=== PATIENT | female | born 1995 | race Two or more races ===

== ENCOUNTER → 2019-02-02 | Outpatient (REF) | payer BC | LOC: M LAB REF 12:40 | PROVIDERS: ATTEND Nurse Practitioner Family | DX: Z32.02 Encounter for pregnancy test, result negative (principal); N92.0 Excessive and frequent menstruation with regular cycle ==

== ENCOUNTER → 2022-10-05 | Outpatient (CLI) | payer BC ==
[2022-10-05 17:39] LABS: HEMATOCRIT 41.5 % (36.0-47.0); HEMOGLOBIN 13.5 g/dl (12.0-15.5); MEAN CORPUSCULAR HEMOGLOBIN 28.9 pg (27.0-33.0); MEAN CORPUSCULAR HGB CONC 32.5 g/dl (32.0-36.5); MEAN CORPUSCULAR VOLUME 88.9 fl (80.0-96.0); PLATELET COUNT, AUTOMATED 286 10^3/uL (150-450); RED BLOOD COUNT 4.67 10^6/uL (4.00-5.40); WHITE BLOOD COUNT 6.6 10^3/uL (4.0-10.0)
[2022-10-05 18:08] LABS: URIC ACID 3.4 MG/DL (3.1-7.8)
[2022-10-05 18:10] LABS: LDH LACTATE DEHYDROGENASE 162 U/L (120-246)
[2022-10-05 18:11] LABS: ALT/SGPT 17 U/L (7.0-40); AST/SGOT 10 U/L (<34); BILIRUBIN,TOTAL 0.6 MG/DL (0.3-1.2); CREATININE FOR GFR 0.57 MG/DL (0.55-1.30); GLOMERULAR FILTRATION RATE > 60.0 (>60)
[2022-10-05 18:13] LABS: CREATININE,RANDOM URINE 146.9 MG/DL
[2022-10-05 18:16] LABS: TOTAL PROTEIN,RANDOM URINE < 6.0 MG/DL (0.0-14.0)
[2022-10-05 18:45] LABS: HIV 1&2 SCREEN CENTAUR NEGATIVE (NEGATIVE)
[2022-10-05 18:51] LABS: HEPATITIS C VIRUS ABY INDEX 0.1 INDEX (<0.8)
[2022-10-05 19:33] LABS: GC DNA AMPLIFICATION NEGATIVE (NEGATIVE)
== END ==
LOC: M PLALAB 15:36
PROVIDERS: ATTEND Advanced Practice Midwife
DX: Z34.01 Encounter for supervision of normal first pregnancy, first trimester (principal)

== ENCOUNTER → 2022-11-26 | Outpatient (CLI) | payer BC | LOC: M PLALAB 15:00 | PROVIDERS: ATTEND Obstetrics & Gynecology | DX: Z34.92 Encounter for supervision of normal pregnancy, unspecified, second trimester (principal) ==

== ENCOUNTER → 2022-12-21 | Outpatient (CLI) | payer BC | LOC: M WHC 07:45 | PROVIDERS: ATTEND Obstetrics & Gynecology | DX: Z34.92 Encounter for supervision of normal pregnancy, unspecified, second trimester (principal) ==

== ENCOUNTER → 2023-01-18 | Outpatient (CLI) | payer BC | LOC: M WHC 13:57 | PROVIDERS: ATTEND Obstetrics & Gynecology | DX: Z36.2 Encounter for other antenatal screening follow-up (principal) ==

== ENCOUNTER → 2023-02-08 | Outpatient (CLI) | payer BC | LOC: M WHC 10:30 | PROVIDERS: ATTEND Advanced Practice Midwife | DX: O16.2 Unspecified maternal hypertension, second trimester (principal); O32.2XX0 Maternal care for transverse and oblique lie, not applicable or unspecified; Z3A.26 26 weeks gestation of pregnancy ==

== ENCOUNTER → 2023-02-08 | Outpatient (CLI) | payer BC ==
[2023-02-08 14:05] LABS: HEMATOCRIT 36.1 % (36.0-47.0); MEAN CORPUSCULAR HEMOGLOBIN 30.8 pg (27.0-33.0); MEAN CORPUSCULAR HGB CONC 33.2 g/dl (32.0-36.5); MEAN CORPUSCULAR VOLUME 92.8 fl (80.0-96.0); PLATELET COUNT, AUTOMATED 214 10^3/uL (150-450); RED BLOOD COUNT 3.89 10^6/uL (4.00-5.40); WHITE BLOOD COUNT 7.5 10^3/uL (4.0-10.0)
== END ==
LOC: M PLALAB 11:03
PROVIDERS: ATTEND Advanced Practice Midwife
DX: O16.2 Unspecified maternal hypertension, second trimester (principal)

== ENCOUNTER → 2023-04-04 | Outpatient (CLI) | payer BC | LOC: M WHC 14:07 | PROVIDERS: ATTEND Advanced Practice Midwife | DX: O16.3 Unspecified maternal hypertension, third trimester (principal) ==

== ENCOUNTER → 2023-04-18 | Outpatient (REF) | payer BC | LOC: M PLALAB 09:01 | PROVIDERS: ATTEND Advanced Practice Midwife | DX: O10.013 Pre-existing essential hypertension complicating pregnancy, third trimester (principal) ==

== ENCOUNTER → 2023-04-22 | Outpatient (CLI) | payer BC | LOC: M WHC 09:34 | PROVIDERS: ATTEND Advanced Practice Midwife | DX: O10.013 Pre-existing essential hypertension complicating pregnancy, third trimester (principal) ==

== ENCOUNTER 2023-11-23 14:42 | Emergency (ER) | payer OTHER, BC ==
[~2023-11-23] VITALS: Ht 162.6 cm; Wt 81.4 kg
[~2023-11-23 14:42] MED LIST: ASPI81CH33 PO; COLA100C5 PO; IBUP80TA PO; LABE200T5 PO; PERCOCET PO; PRENTAB9 PO; TUMS750C5 PO
[2023-11-23] MEDS ORDERED: DROS4TAB (15:04)
[2023-11-23] MEDS ORDERED: PROP120C (15:04)
[2023-11-23] MEDS ORDERED: TOPI25TA10 (15:04)
[2023-11-23 16:52] VITALS: BP 139/91; TEMP 97.8; O2SAT 97
== END 2023-11-23 16:52 | disposition home or self-care (01) ==
LOC: M ED 14:42
DX: M25.561 Pain in right knee (principal); M25.512 Pain in left shoulder; V49.40XA Driver injured in collision with unspecified motor vehicles in traffic accident, initial encounter; I10 Essential (primary) hypertension; G43.909 Migraine, unspecified, not intractable, without status migrainosus; Z88.8 Allergy status to other drugs, medicaments and biological substances; Z79.1 Long term (current) use of non-steroidal anti-inflammatories (NSAID); Z79.899 Other long term (current) drug therapy; Y99.9 Unspecified external cause status

== ENCOUNTER → 2024-11-19 | Outpatient (CLI) | payer BC ==
[~2024-11-19] MED LIST changes: +DROS4TAB; +PROP120C; +TOPI-256
== END ==
LOC: M PLAIMG 15:36
PROVIDERS: ATTEND Nurse Practitioner Adult Health
DX: G43.909 Migraine, unspecified, not intractable, without status migrainosus (principal); I10 Essential (primary) hypertension

== ENCOUNTER → 2025-03-01 | Outpatient (CLI) | payer BC | LOC: M PLALAB 09:03 | PROVIDERS: ATTEND Advanced Practice Midwife | DX: O03.9 Complete or unspecified spontaneous abortion without complication (principal) ==

== ENCOUNTER → 2025-05-26 | Outpatient (CLI) | payer BC ==
[2025-05-26 15:42] LABS: PLATELET COUNT, AUTOMATED 288 10^3/uL (150-450)
[2025-05-26 16:01] LABS: LDH LACTATE DEHYDROGENASE 186 U/L (120-246)
[2025-05-26 16:02] LABS: ALT/SGPT 15 U/L (7.0-40); AST/SGOT 11 U/L (<34); CREATININE FOR GFR 0.65 MG/DL (0.55-1.30); GLOMERULAR FILTRATION RATE > 90.0 (>60)
[2025-05-26 16:40] LABS: TOTAL PROTEIN,RANDOM URINE 10.6 MG/DL (0.0-14.0)
[2025-05-26 16:46] LABS: Trichomonas vaginalis (AMP) NOT DETECTED (NEGATIVE)
[2025-05-26 17:09] LABS: GC DNA AMPLIFICATION NEGATIVE (NEGATIVE)
[2025-05-26 17:17] LABS: HIV 1&2 SCREEN NEGATIVE (NEGATIVE)
[2025-05-26 17:26] LABS: HEPATITIS C VIRUS ABY INDEX < 0.02 INDEX (<0.8)
== END ==
LOC: M PLALAB 13:56
PROVIDERS: ATTEND Nurse Practitioner Family
DX: Z34.80 Encounter for supervision of other normal pregnancy, unspecified trimester (principal); Z3A.00 Weeks of gestation of pregnancy not specified

== ENCOUNTER → 2025-06-25 | Outpatient (CLI) | payer BC ==
[~2025-06-25] MED LIST changes: -LABE200T5 PO; +LABE200T86 PO
== END ==
LOC: M WHC 07:56
PROVIDERS: ATTEND Obstetrics & Gynecology
DX: Z53.9 Procedure and treatment not carried out, unspecified reason (principal)

== ENCOUNTER → 2025-06-25 | Outpatient (CLI) | payer BC | LOC: M PLALAB 08:25 | PROVIDERS: ATTEND Obstetrics & Gynecology | DX: O10.011 Pre-existing essential hypertension complicating pregnancy, first trimester (principal); Z13.79 Encounter for other screening for genetic and chromosomal anomalies ==